=== PATIENT | female | born 1960 | race Caucasian/White ===

== ENCOUNTER 2023-07-03 14:53 | Observation (INO) | payer BC, SELFPAY ==
[2023-07-03 10:24] VITALS: BMI 31.0
[2023-07-03 10:25] VITALS: BP 151/92
[2023-07-03 11:44] LABS: % Basophils 0.3 % (0-2); % Eosinophils 0.8 % (0-6); % Immature Granulocytes 1.2 % (0-0.5); % Lymphocytes 12.9 % (20.5-51.1); % Monocytes 8.2 % (1.7-9.3); % Neutrophils 76.6 % (42.2-75.2); Absolute Eosinophils 0.1 10^3/uL (0-0.7); Absolute Immature Granulocytes 0.2 10^3/uL (0-0.05); Absolute Monocytes 1.3 10^3/uL (0.1-0.6); Absolute Neutrophils 12.1 10^3/uL (1.4-6.5); Hematocrit 31.3 % (37.0-47.0); Hemoglobin 10.7 g/dL (12.0-16.0); Mean Corp Hgb Conc. 34.2 g/dL (33.0-37.0); Mean Corpuscular Hgb 29.2 pg (27.0-31.0); Mean Corpuscular Volume 85.5 fL (81.0-99.0); Mean Platelet Volume 9.3 fL (7.4-10.4); Nucleated Red Blood Cells % 0 %; Platelet Count 154 10^3/uL (130-400); Red Blood Cell Count 3.66 10^6/uL (4.20-5.40); Red Cell Dist. Width 14.5 % (11.5-14.5); White Blood Cell Count 15.8 10^3/uL (4.8-10.8)
--- NOTE | 2023-07-03 11:54 | ED.GENMED ---
History of Present Illness
General
Chief Complaint: Cold/Flu/URI Symptoms
Source: patient and spouse
Exam Limitations: none
Time Seen by Provider: 07/03/23 10:35
Nursing documentation reviewed up to this point in time: agreed with
Travel History
Have you had any contact with someone who has COVID-19?: No
Do you have any symptoms of coronavirus? Fever > 100 degrees, chills, cough, shortness of breath, sore throat, loss of taste or smell, muscle aches, or headache?: No
History of Present Illness
History of Present Illness:
62-year-old female with a history of hypothyroidism presents to the emergency room for evaluation after syncopal event. Patient reports that she has been struggling with nasal congestion for the past week or so. Started on amoxicillin yesterday.
She has not had any other symptoms such as cough, shortness of breath, fever, chills. She says that today she woke up and got out of the shower. She says that while she was in the shower she began to feel lightheaded. She says she got in the
shower and sat her self down onto the ground next to her bed. She says that she had worsening lightheadedness and ultimately passed out. She called out to her , he says that when he came to her she was still feeling lightheaded but was
awake alert and breathing. Patient says it was only transient loss of consciousness but she was very dizzy and presyncopal for about 20 minutes. She did not have any seizure-like activity or confusion, incontinence, tongue biting. She says that
she now feels generally well aside from persistent congestion. She did not have any preceding chest pain, shortness of breath, palpitations and has not had any of the symptoms since. She denies any headache. No abdominal or flank pain. She says
she has never had similar symptoms in the past. Denies any known cardiac history.
Review of Systems
Review of Systems
All Other Systems: ROS reviewed and negative except as documented in HPI and ROS
Constitutional: Denies fever or chills
EENT: Reports other (Nasal congestion); Denies sore throat
Respiratory: Denies cough or trouble breathing
Cardiac: Reports syncope; Denies chest pain, diaphoresis or palpitations
ABD/GI: Denies abdominal pain, nausea, vomiting or diarrhea
: Denies flank pain
Musculoskeletal: Denies neck pain or back pain
Neurological: Denies headache, weakness or numbness
Phy Exam
Physical Exam
Physical Exam:
General: Awake, alert; no acute distress
Head: Normocephalic, atraumatic
Eyes: Conjunctiva normal, pupils equal round and reactive to light bilaterally
Throat: Airway intact, handling secretions
Neck: Trachea midline, supple without meningismus
Lungs: Clear to auscultation bilaterally, no wheezing, rales, rhonchi
Heart: Regular rate and rhythm, no murmurs, gallops, or rubs appreciated
Abd: Soft, non distended, nontender, no abdominal masses
Neuro: Cranial nerves intact 2 through 12, speech is fluid with no dysarthria aphasia, motor and sensory function intact in all extremities
Skin: no rash
Extremities: No edema in extremities, equal pulses in all extremities
Scores
Heart Failure Risk
Heart Failure Risk Score: Not Applicable
Heart Score for Chest Pain Patients
STEMI patient?: Not applicable
[place] Syncope Rule
Conjestive Heart Failure History: No
Hematocrit <30%: No
EKG Abnormal (New changes, non NSR on EKG/Monitor): No
Shortness of Breath Symptoms: No
Systolic BP <90 mmHg at Triage: No
Patient is high risk for syncope: No
Withdrawal Assessment of Alcohol
Withdrawal Assessment Completed?: Not applicable
Course
Orders/Labs/Results
Orders:
Orders
07/03/23 11:21
Electrocardiogram (*1) Urgent
Reason for Study: Syncope
EKG- Treatment ONCE
07/03/23 11:28
COVID-19 Antigen Urgent
Source: Nasal Swab
Influenza A+B Rapid Molecular Urgent
SIMON Source: Nasal Swab
Specimen Description:
07/03/23 11:32
Complete Blood Count/With Diff Urgent
Comprehensive Metabolic Panel Urgent
D-Dimer Urgent
Troponin I Urgent
07/03/23 11:48
CR Chest - 2 Views Urgent
Comment:
Reason For Exam: syncope, URI sxs
Abnormal Lab Results
07/03/23
11:32
WBC 15.8 H 10^3/uL
(4.8-10.8)
RBC 3.66 L 10^6/uL
(4.20-5.40)
Hgb 10.7 L g/dL
(12.0-16.0)
Hct 31.3 L %
(37.0-47.0)
Abs Immat Gran (auto) 0.2 H 10^3/uL
(0-0.05)
Absolute Neuts (auto) 12.1 H 10^3/uL
(1.4-6.5)
Absolute Monos (auto) 1.3 H 10^3/uL
(0.1-0.6)
Immature Gran % 1.2 H %
(0-0.5)
Neutrophils % 76.6 H %
(42.2-75.2)
Lymphocytes % 12.9 L %
(20.5-51.1)
Sodium 130 L mmol/L
(135-145)
Glucose 150 H mg/dl
(70-99)
07/03/23 11:32
07/03/23 11:32
Vital Signs
Initial and Last Documented VS:
Initial Vital Signs
Temp Pulse Resp BP Pulse Ox
36.6 C 81 18 151/92 99
07/03/23 10:25 07/03/23 10:25 07/03/23 10:07/03/23 10:07/03/23 10:25
Last Documented Vital Signs
Temp Pulse Resp BP Pulse Ox
36.6 C 81 18 151/92 99
07/03/23 10:25 07/03/23 10:25 07/03/23 10:25 07/03/23 10:07/03/23 10:25
MDM/Problems Addressed
Differential Diagnosis Includes:
Vasovagal syncope, orthostatic/postural hypotension, vasodilation from hot shower, dehydration, anemia, electrolyte derangement, less likely cardiac dysrhythmia
MDM/Problems Addressed:
62-year-old female presents for evaluation of syncopal episode after taking a warm shower this morning; occurred in the setting of recent antibiotics for sinus infection. Mildly hypertensive on arrival here but otherwise normal vitals. Physical
exam as above. Plan to place an IV will check labs including CBC and CMP. Will check troponin and EKG. Will check D-dimer. Check chest x-ray. Monitor closely reassess after the above.
Labs reviewed: CBC shows leukocytosis to 15.8 possibly related to her sinus infection. She has mild anemia at 10.7 which is decreased from prior value of 12. She denies any black or bloody stools. Hemoccult negative here. She has marginal
hyponatremia with a glucose of 150. Her D-dimer and troponin are negative. Her EKG shows no concerning abnormalities. Her chest x-ray shows no acute disease. She is feeling generally well on reassessment vitals remain within normal limits.
Given reported prolonged episode and new anemia will admit for monitoring on telemetry and serial hemoglobins. Discussed with hospitalist for admission.
Acute Exacerbation and/or Progression of Chronic Illness:
Acutely hypertensive
Acute Exacerbation and/or Progression of Chronic Illness: HTN
*Radiology
Radiology exam reviewed: preliminary read by ED provider (Chest x-ray no acute disease) and radiology read reviewed
*Pulse Oximetry
Patient hypoxic: no
*EKG
Interpreted by ED Provider?: Yes
Comparison EKG: no comparison EKG present
Heart Rate: 81
Rate: normal
Rhythm: sinus
[place]: normal axis
Interval: normal interval
QRS Pattern: right bundle branch block (Incomplete)
Ischemia: no ischemia
*Critical Care Note
Total Time (30-74mins, 75-104mins- exclusive of procedures): Not Applicable
Data Reviewed
Review of Other/Old Records Reveals: Labs
Source: patient and spouse
Patient Management
Discussion with other providers: Hospitalist (Discussed with hospitalist)
Escalation/DeEscalation of care consider admission/obs:
Admission indicated
ED Attending Note
-
Portions of this chart may have been created with voice recognition software.� Occasional wrong word or��sound alike� substitutions may have occurred due to the inherent limitations of voice recognition software.
Discharge Plan
Departure
Patient Disposition: Admit
Date of Disposition: 07/03/23
Time of Disposition: 13:12
Admit to doctor: Daniela
Presentation/result/management discussed w/ accepting MD/DO: Hospitalist
Discharge Problem:
Syncope, Anemia
Referrals:
Cameron Marie CRNP [Family Provider] -
Interventions
Interventions:
*Risk Screen - Suicide Last Done: 07/03/23 11:00
*General Assessment Last Done: 07/03/23 10:58
*Neglect/Abuse Screening Last Done: 07/03/23 10:58
*ED COVID-19 Vaccine History Last Done: 07/03/23 10:58
ED- Pulmonary Assessment Last Done: 07/03/23 11:00
[2023-07-03 11:56] LABS: D-Dimer < 0.27 ug/mlFEU (0.00-0.50)
[2023-07-03 11:59] LABS: ALT (SGPT) 11 U/L (0-35); AST (SGOT) 22 U/L (14-36); Alkaline Phosphatase 100 U/L (38-126); Blood Urea Nitrogen 10 mg/dl (7-17); Calcium 8.7 mg/dl (8.4-10.2); Carbon Dioxide 28 mmol/L (22-30); Chloride 99 mmol/L (98-107); Estimated Creatinine Clearance 112 ml/min; Glucose 150 mg/dl (70-99); Potassium 3.9 mmol/L (3.5-5.1); Sodium 130 mmol/L (135-145); Total Bilirubin 0.4 mg/dl (0.2-1.3); Total Protein 6.9 g/dl (6.3-8.2); eGFR > 60.00
[2023-07-03 12:06] LABS: Troponin I < 0.012 ng/ml
[2023-07-03 12:06] LABS: COVID-19 Antigen Negative (Negative)
[2023-07-03 13:24] VITALS: BP 133/76
--- NOTE | 2023-07-03 14:47 | HPS.HSE ---
Family Physician
-
Family Physician: CHEMA Padilla
Chief Complaint
-
syncope
History of Present Illness
62yo F with PMHx of hypothyroidism came after episode of syncope. SHe felt woozy just before this happened. Her witnessed it and does not reporyt any sizure-like activity. Patient LOC for minute or two, was not overly confused afterwards. No
similar episodes in the past. No palpitations reported
Patient had sinusitis for jessica a week now, started by PCP on augmentin and also was taking Claritin DM, however did not take it on the day of admission.
Medical History
Past Medical History
Past Medical History: Reports Other
Additional Past Medical History:
See HPI
Past Surgical History: Reports Other
Additional Past Surgical History:
Not pertinent
Social History
Tobacco: Non-smoker
Alcohol: None
Drug: None
Personal:
Family History
Family History: Not pertinent
Allergies / Home Medications
Allergies reflects when Allergies were last updated in [facility].
Home Medications with original date entered in [facility]
Allergy/Medication List:
Home Medications
Claritin-D 1 tab PO DAILYPRN PRN congestion 07/03/23
Mucinex DM 1 tab PO [id number] PRN congestion 07/03/23
amoxicillin 875 mg-potassium clavulanate 125 mg tablet 1 tab PO Q12H Infection 07/03/23
betamethasone valerate 0.1 % lotion 1 applic topical QWEEK PRN apply to vulva 07/03/23
cholecalciferol (vitamin D3) 25 mcg (1,000 unit) tablet 25 mcg PO QPM Supplement 07/03/23
fluticasone propionate 50 mcg/actuation nasal spray,suspension 2 spray intranasal DAILY PRN congestion 07/03/23
ibuprofen 200 mg tablet (Advil) 600 mg PO TIDPRN PRN mild pain 07/03/23
levothyroxine 50 mcg tablet 50 mcg PO DAILY Thyroid 07/03/23
Review of Systems
-
A 12 point ROS was completed and negative except as noted: Yes
Constitutional: Reports See HPI
EENT: Reports See HPI
Physical Exam
Vital Signs
Vital Signs
Temp Pulse Resp BP Pulse Ox
97.8 F 83 16 133/76 97
07/03/23 10:25 07/03/23 13:24 07/03/23 13:24 07/03/23 13:24 07/03/23 13:24
Physical Exam
General: Well Developed, Well Nourished and No Apparent Distress
HEENT: NormoCephalic, Atraumatic, PERRLA and Other (nasal congestion)
Respiratory: Clear; No Wheezes, Rales or Rhonchi
Cardiac: S1/S2 and Regular Rhythm; No Murmur
GI: Soft, Non Tender and Non Distended
Genito-urinary: No costovertebral tender
Musculoskeletal: No Clubbing, No Cyanosis and No Edema
Skin: Warm; No Dry or Rash
Neuro: Awake, Alert, Oriented and AO x 3
Hematologic/Lymphatic: No Lymphadenopathy
Psych: Calm
Laboratory Results
-
07/03/23 11:32
07/03/23 11:32
Laboratory Results
Total Bilirubin 0.4 mg/dl (0.2-1.3) 07/03/23 11:32
AST 22 U/L (14-36) 07/03/23 11:32
ALT 11 U/L (0-35) 07/03/23 11:32
Alkaline Phosphatase 100 U/L (38-126) 07/03/23 11:32
Troponin I < 0.012 ng/ml 07/03/23 11:32
Impression/Plan
-
A/P:
#Syncope, most likely vasovagal (might be 2/2 sinusitis)
DDimer WNL, with Wells score 0 - no concern for VTE
Echo, US carotids, telemetry, orthostatics
#Sinusitis
cont Augmentin
COVID-19 neg
check Influenza
#Hypothyroidism
check TSHm, cont synthroid
#Mild anemia
previously not anemic as per PCP w/u 4-5 mo ago
Anemia w/u
FOBT neg in ED
recommended outpatient colonoscopy (last in 2019 and as per patient - WNL)
DVt ppx hep
FUll code
I have spent at least 78 min preparing admission, reviewing chart, test results and direct patient care
[2023-07-03 16:31] VITALS: BP 126/71
[2023-07-03] MEDS: TYLENOL 650 MG PO ×2 (16:53→23:11)
[2023-07-03] MEDS: AUGMENTIN 875 MG/125 MG 1 TABLET PO (16:54)
[2023-07-03 19:30] VITALS: BP 140/72; BMI 30.7
[2023-07-03] MEDS: HEPARIN 5000 UNITS SC (20:29)
[2023-07-03 20:40] VITALS: BP 131/81; BP 131/83; BP 149/78; PULSE 80; PULSE 84
[2023-07-03 22:46] LABS: Urine Albumin Negative (Neg - Trace); Urine Bilirubin Negative (Negative); Urine Character Clear (Clear); Urine Color Yellow; Urine Glucose Negative (Negative); Urine Ketone Negative (Negative); Urine Leukocyte Negative (Negative); Urine Nitrite Negative (Negative); Urine Occult Blood 1+ (Negative); Urine Urobilinogen Negative (Neg - 1+); Urine pH 6.5 (5.0-9.0)
[2023-07-03 23:05] LABS: Urine Red Blood Cell 0-2 /HPF (0-2); Urine Squamous Cell 21-25 /LPF (Few); Urine White Cell 0-2 /HPF (0-5)
[2023-07-03] MEDS: MUCINEX 600 MG PO (23:11)
[2023-07-03 23:20] VITALS: BP 132/80
[2023-07-04 03:25] VITALS: BP 146/87
[2023-07-04] MEDS: HEPARIN SC (03:26)
[2023-07-04] MEDS: SYNTHROID 50 MCG PO (06:25)
[2023-07-04 06:54] LABS: % Basophils 0.5 % (0-2); % Eosinophils 2.5 % (0-6); % Immature Granulocytes 1.7 % (0-0.5); % Lymphocytes 35.8 % (20.5-51.1); % Monocytes 8.8 % (1.7-9.3); % Neutrophils 50.7 % (42.2-75.2); Absolute Basophils 0.1 10^3/uL (0-0.2); Absolute Eosinophils 0.3 10^3/uL (0-0.7); Absolute Immature Granulocytes 0.2 10^3/uL (0-0.05); Absolute Lymphocytes 3.7 10^3/uL (1.2-3.4); Absolute Monocytes 0.9 10^3/uL (0.1-0.6); Absolute Neutrophils 5.3 10^3/uL (1.4-6.5); Hematocrit 30.9 % (37.0-47.0); Hemoglobin 10.8 g/dL (12.0-16.0); Mean Corpuscular Hgb 29.3 pg (27.0-31.0); Mean Corpuscular Volume 83.7 fL (81.0-99.0); Mean Platelet Volume 9.2 fL (7.4-10.4); Nucleated Red Blood Cells % 0 %; Platelet Count 168 10^3/uL (130-400); Red Blood Cell Count 3.69 10^6/uL (4.20-5.40); Red Cell Dist. Width 14.6 % (11.5-14.5); Reticulocyte Count 1.4 % (0.4-2.8); White Blood Cell Count 10.5 10^3/uL (4.8-10.8)
[2023-07-04 07:26] LABS: Blood Urea Nitrogen 10 mg/dl (7-17); Calcium 8.8 mg/dl (8.4-10.2); Carbon Dioxide 29 mmol/L (22-30); Chloride 102 mmol/L (98-107); Estimated Creatinine Clearance 111 ml/min; Glucose 108 mg/dl (70-99); Iron 136 ug/dl (37-170); LDH 190 U/L (120-246); Magnesium 2.1 mg/dl (1.6-2.3); Sodium 134 mmol/L (135-145); eGFR > 60.00
[2023-07-04 07:35] LABS: Percent Saturation 51 % (20-50); Total Iron Binding Capacity 264 ug/dl (265-497)
[2023-07-04] MEDS: MUCINEX 600 MG PO ×2 (07:48→19:01)
[2023-07-04] MEDS: AUGMENTIN 875 MG/125 MG 1 TABLET PO ×2 (07:48→19:01)
[2023-07-04] MEDS: HEPARIN 5000 UNITS SC ×3 (07:49→23:13)
[2023-07-04 07:56] LABS: TSH 1.96 uIU/ml (0.47-4.68)
[2023-07-04 08:00] VITALS: BP 127/77
[2023-07-04 08:31] LABS: Folate > 20.0 ng/ml (2.76-20); Vitamin B12 773 pg/ml (239-931)
--- NOTE | 2023-07-04 10:34 | W.PN.HOSP.TC ---
Today's Communication/Plan
-
monitor on tele
check CT head
echo
Assessment / Plan
Assessment / Plan
#Syncope, most likely vasovagal vs. arrythmia vs. low likelihood of seizures
�DDimer WNL, with Wells score 0 - no concern for VTE. Hr controlled. No tachycardia.
Orthostatics negative.
Carotid US negative for severe stenosis
ECHO pending
CT head ordered
monitor on tele for arrhythmia
#Sinusitis
cont Augmentin
COVID-19 neg
check Influenza neg
#Hypothyroidism
cont synthroid
#Mild anemia
previously not anemic as per PCP w/u 4-5 mo ago
Anemia w/u
FOBT neg in ED
recommended outpatient colonoscopy (last in 2019 and as per patient - WNL)
DVt ppx hep
FUll code
Anticipated Discharge: Within 24 hours
Subjective/Interval History
-
Date of Service: July 04, 2023
feeling better
states of nasal congestion
has not slept much
denies any recent stressors
no cp or sob or palpations currently
no tongue biting
Objective Data
-
Labs:
Laboratory Results
07/04/23
06:29
WBC 10.5
Hgb 10.8 L
Hct 30.9 L
Plt Count 168
Sodium 134 L
Potassium 4.0
Chloride 102
Carbon Dioxide 29
BUN 10
Creatinine 0.6
Glucose 108 H
Calcium 8.8
Vital Signs:
Vital Signs
Temp Pulse Resp BP Pulse Ox
98.4 F 76 16 127/77 98
07/04/23 08:00 07/04/23 08:00 07/04/23 08:00 07/04/23 08:00 07/04/23 08:00
I&O
07/03/23 07/04/23 07/05/23
06:59 06:59 06:59
Intake Total 960 / 960
Balance 960 / 960
Physical Exam
-
General: Well Developed and No Apparent Distress
HEENT: Normocephalic, Atraumatic and Moist Mucous Membranes
Respiratory: Clear to Auscultation
Cardiac: Regular Rhythm and S1/S2; Negative Murmur, Rub or Gallop
GI: Soft, Nontender, Nondistended and Normal Bowel Sounds; Negative Organomegaly
Rectal: Deferred by Provider
Musculoskeletal: No Clubbing, No Cyanosis and No Edema
Skin: Negative Rash
Neuro: Awake, Alert, Oriented, AO x 3, No Motor Deficits, Nonfocal/Grossly Intact and Central Nerve's Intact; Negative Tremors
Psych: Calm
[2023-07-04 11:45] VITALS: BP 124/79
[2023-07-04 16:07] VITALS: BP 156/82
[2023-07-04 19:20] VITALS: BP 133/81
[2023-07-04 23:00] VITALS: BP 150/87
[2023-07-05 04:00] VITALS: BP 122/66
[2023-07-05] MEDS: SYNTHROID 50 MCG PO (06:06)
[2023-07-05] MEDS: MUCINEX 600 MG PO (07:37)
[2023-07-05] MEDS: HEPARIN 5000 UNITS SC (07:37)
[2023-07-05] MEDS: AUGMENTIN 875 MG/125 MG 1 TABLET PO (07:37)
[2023-07-05 07:41] VITALS: BP 127/72
--- NOTE | 2023-07-05 10:43 | W.PN.HOSP.TC ---
Today's Communication/Plan
-
DC home
Assessment / Plan
Assessment / Plan
#Syncope, most likely vasovagal in setting of recent sinusitis during hot shower
�DDimer WNL, with Wells score 0 - no concern for VTE. Hr controlled. No tachycardia.
Orthostatics negative.
Carotid US negative for severe stenosis
ECHO left ventricular pressure 55 to 60%. Mild concentric LVH. Normal systolic function.
CT head ordered negative for acute pathology.
monitor on tele for arrhythmia negative for any arrhythmias.
#Sinusitis
cont Augmentin
COVID-19 neg
check Influenza neg
#Hypothyroidism
cont synthroid
#Mild anemia
previously not anemic as per PCP w/u 4-5 mo ago
Anemia w/u
FOBT neg in ED
recommended outpatient colonoscopy (last in 2019 and as per patient - WNL)
DVt ppx hep
FUll code
More than 30 minutes spent in discharge including
Final examination of the patient
Summarizing hospital stay
Instructions for continuing care to all relevant caregivers
Preparation of discharge records, prescriptions, and referral forms
Total time spent (in minutes): 40
Anticipated Discharge: Today
Subjective/Interval History
-
Date of Service: July 05, 2023
Patient ambulating in the room without difficulty
Denies any chest pain shortness of breath or palpitation
Denies any lightheadedness or dizziness
Objective Data
-
Vital Signs:
Vital Signs
Temp Pulse Resp BP Pulse Ox
98.3 F 71 16 127/72 98
07/05/23 07:41 07/05/23 07:41 07/05/23 07:41 07/05/23 07:41 07/05/23 07:41
I&O
07/04/23 07/05/23 07/06/23
06:59 06:59 06:59
Intake Total 960 / 960 2640 / 2640
Balance 960 / 960 2640 / 2640
Physical Exam
-
General: Well Developed and No Apparent Distress
HEENT: Normocephalic, Atraumatic and Moist Mucous Membranes
Respiratory: Clear to Auscultation
Cardiac: Regular Rhythm and S1/S2; Negative Murmur, Rub or Gallop
GI: Soft, Nontender, Nondistended and Normal Bowel Sounds; Negative Organomegaly
Rectal: Deferred by Provider
Musculoskeletal: No Clubbing, No Cyanosis and No Edema
Skin: Negative Rash
Neuro: Awake, Alert, Oriented, AO x 3, No Motor Deficits, Nonfocal/Grossly Intact and Central Nerve's Intact; Negative Tremors
Psych: Calm
--- NOTE | 2023-07-05 10:45 | W.DCSUMMARY ---
Discharge Summary
Discharge Data
Date of Admission: 07/03/23
Date of Discharge: 07/05/23
-
Pending Results: No
Hospital Course
62-year-old female past medical history of hypothyroidism, sinusitis, anemia who is presenting from home with presyncope. Patient states she woke up did not have any meals and rice and shower when she started to feel lightheaded. Patient stepped
out went to the bedroom where she passed out. Patient states she lost consciousness for approximately 30 seconds to max 1 minute. EMS was called. Patient stated when she woke up she was feeling diaphoretic. Prior to the syncopal episode patient
denied any chest pain or palpitations or nausea or vomiting. Patient orthostatics were checked was found to be negative. Carotid ultrasound negative for severe stenosis. Echocardiogram was performed which showed left ventricular ejection fraction
55 to 60%. Mild concentric LVH. Normal systolic function. CT of the head was performed which is negative for acute pathology. Patient was monitored on telemetry and was found to be negative for arrhythmias. Patient was ambulating in the room
without any complaints. Patient did not have any further episode of lightheaded and dizziness. Patient be discharged home recommendation to follow-up with primary doctor.
Discharge Plan
-
Patient Disposition: Home (Routine Discharge)
Discharge Diagnosis/Procedures: Syncope likely secondary to vasovagal
Condition: Fair
Diet: As tolerated
Activity: As tolerated
Driving Restrictions: As prior to admission
Referrals:
Cameron Marie CRNP [Family Provider] - in less than 1 week
Prescriptions:
Continued
betamethasone valerate 0.1 % Lotion
1 applic TOPICAL QWEEK PRN (Reason: apply to vulva)
levothyroxine 50 mcg Tablet
50 mcg PO DAILY AT 0700
fluticasone propionate 50 mcg/actuation [place],Suspension
2 spray INTRANASAL DAILY PRN (Reason: congestion)
amoxicillin-pot clavulanate 875-125 mg Tablet
1 tab PO Q12H
Patient Comments:
07/03/2023, pt. filled this med. on 07/02/2023 and is instructed to take one tablet Q12H for 10 days.
cholecalciferol (vitamin D3) 25 mcg (1,000 unit) Tablet
25 mcg PO QPM
Claritin-D
1 tab PO DAILYPRN PRN (Reason: congestion)
Mucinex DM
1 tab PO [id number] PRN (Reason: congestion)
Discontinued
ibuprofen [Advil] 200 mg Tablet
600 mg PO TIDPRN PRN (Reason: mild pain)
Discharge Orders:
Discharge Patient (As Directed); Ordered 07/05/23
Ordered By: Wesley Rodriguez
Discharge Date and Time
Discharge Date/Time: 07/05/23 11:03
== END 2023-07-05 11:03 | disposition home or self-care (01) ==
LOC: 3 WEST ACU 14:53
PROVIDERS: ADMITTING PHYSICIAN Internal Medicine; ATTENDING PHYSICIAN Hospitalist; EMERGENCY PHYSICIAN Emergency Medicine; FAMILY PHYSICIAN Nurse Practitioner Family
DX: R55 Syncope and collapse (principal); R09.81 Nasal congestion; J01.90 Acute sinusitis, unspecified; R42 Dizziness and giddiness; I10 Essential (primary) hypertension; E03.9 Hypothyroidism, unspecified; D72.829 Elevated white blood cell count, unspecified; D64.9 Anemia, unspecified; E87.1 Hypo-osmolality and hyponatremia; Z79.890 Hormone replacement therapy; Z11.52 Encounter for screening for COVID-19; R61 Generalized hyperhidrosis
CPT/HCPCS: 70450; 71046; 80048; 80053; 81003; 81015; 82607; 82728; 82746; 83540; 83550; 83615; 83735; 84443; 84484; 85025; 85045; 85379; 87502; 87811; 93005; 93306; 93880; 99285; G0378

== ENCOUNTER → 2023-12-11 16:21 | Outpatient (REF) | payer BC, SELFPAY | LOC: HWWDC 16:21 | PROVIDERS: ATTENDING PHYSICIAN Obstetrics & Gynecology Gynecology; FAMILY PHYSICIAN Nurse Practitioner Family | DX: Z12.31 Encounter for screening mammogram for malignant neoplasm of breast (principal) | CPT/HCPCS: 77063; 77067 ==

== ENCOUNTER → 2024-12-12 10:17 | Outpatient (REF) | payer BC, SELFPAY | LOC: HWWDC 10:17 | PROVIDERS: ATTENDING PHYSICIAN Obstetrics & Gynecology Gynecology; FAMILY PHYSICIAN Nurse Practitioner Family | DX: Z12.31 Encounter for screening mammogram for malignant neoplasm of breast (principal) | CPT/HCPCS: 77063; 77067 ==

== ENCOUNTER → 2025-04-30 09:00 | Outpatient (REF) | payer BC, SELFPAY | LOC: HWRAD 09:00 | PROVIDERS: ATTENDING PHYSICIAN Nurse Practitioner Family | DX: D69.6 Thrombocytopenia, unspecified (principal) | CPT/HCPCS: 76700 ==